=== PATIENT | female | born 1965 | race Two or more races ===

== ENCOUNTER 2018-05-27 13:15 | Emergency (ER) | payer OTHER ==
[2018-05-27 13:19] VITALS: TEMP 98.1; BMI 28.1
[2018-05-27] MEDS ORDERED: METOCLOPRAMIDE HCL INJECTION 10 MG/2 ML VIAL IM ONE (16:06)
[2018-05-27] MEDS ORDERED: dilTIAZem HCL 50 MG/10 ML - 10 ML VIAL IVPUSH ONE (16:22)
--- NOTE | 2018-05-27 16:30 | PDOC ---
History of Present Illness - General Chief Complaint: Blood Pressure Problem Stated Complaint: HEADACHE Time Seen by Provider: 05/27/18 14:27 History Source: Patient Exam Limitations: Clinical Condition - History of Present Illness Initial Comments: 05/27/18 16:24 Patient with history of hypertension, hyperlipidemia and iron deficiency anemia present with complain of elevated blood pressure with throbbing headache and nausea since yesterday. Denies vomiting, dizziness, chest pain, sweats or loss of consciousness. Patient reported she has been taking her blood pressure medication of amlodipine and hydrochlorothiazide daily. Denies any other symptoms Timing/Duration: 24 hours Past History - Past Medical History Allergies/Adverse Reactions: Allergies Allergy/AdvReac Type Severity Reaction Status Date / Time iron Allergy Verified 05/27/18 13:19 Home Medications: Ambulatory Orders Amlodipine Besylate [Norvasc -] 10 mg PO DAILY #15 tablet 05/27/18 Aspirin/Acetaminophen/Caffeine [Excedrin Migraine Caplet] 1 each PO BID PRN #20 tablet 05/27/18 Atorvastatin Ca [Lipitor] 10 mg PO HS 05/27/18 Ferrous Sulfate 325 mg PO DAILY 05/27/18 Losartan/Hydrochlorothiazide [Losartan-Hctz 100-25 mg Tab] 1 each PO DAILY 05/27 Anemia: Yes Cardiac Disorders: Yes COPD: No HTN: Yes Hypercholesterolemia: Yes - Suicide/Smoking/Psychosocial Hx Smoking History: Never smoked Review of Systems - Review of Systems Able to Perform ROS?: Yes Is the patient limited Singaporean proficient: No Constitutional: No: Chills, Fever, Weakness HEENTM: No: Symptoms Reported Respiratory: No: Symptoms reported Cardiac (ROS): No: Symptoms Reported, Chest Pain, Irregular Heart Rate, Palpitations, Syncope, Chest Tightness ABD/GI: Yes: Nausea. No: Abdominal Distended, Constipated, Diarrhea, Rectal Bleeding, Vomiting : No: Symptoms Reported, Dysuria, Frequency, Urgency Integumentary: No: Symptoms Reported Neurological: Yes: Headache. No: Seizure, Weakness, Unsteady Gait, Dizziness All Other Systems: Reviewed and Negative *Physical Exam - Vital Signs Last Vital Signs Temp Pulse Resp BP Pulse Ox 98.1 F 94 H 18 214/83 99 05/27/18 13:17 05/27/18 13:17 05/27/18 13:17 05/27/18 15:39 05/27/18 13:17 - Physical Exam Comments: 05/27/18 16:27 GENERAL: Well developed, well nourished. Awake and alert. No acute distress. HEENT: Normocephalic, atraumatic. PERRLA, EOMI. NECK: Supple. Full ROM. No JVD. Carotid pulses 2+ and symmetric, without bruits. No thyromegaly. No lymphadenopathy. CARDIOVASCULAR: Regular rate and rhythm. No murmurs, rubs, or gallops. Distal pulses are 2+ and symmetric. PULMONARY: No evidence of respiratory distress. Lungs clear to auscultation bilaterally. No wheezing, rales or rhonchi. ABDOMINAL: Soft. Non-tender. Non-distended. No rebound or guarding. No organomegaly. Normoactive bowel sounds. SKIN: Warm and dry. Normal capillary refill. No rashes. No jaundice. NEUROLOGICAL: Alert, awake, appropriate. Cranial nerves 2-12 intact. Gait is normal without ataxia. PSYCHIATRIC: Cooperative. Good eye contact. Appropriate mood and affect. General Appearance: Yes: Nourished, Appropriately Dressed. No: Apparent Distress ED Treatment Course - LABORATORY CBC & Chemistry Diagram: 05/27/18 17:08 05/27/18 17:08 - RADIOLOGY Radiology Studies Ordered: Category Date Time Status HEAD CT WITHOUT CONTRAST [CT] Stat CT Scan 05/27/18 16:22 Ordered Medical Decision Making - Medical Decision Making 05/27/18 16:28 Patient with history of hypertension, hyperlipidemia and iron deficiency anemia present with complain of throbbing headaches, nausea and elevated blood pressure since yesterday. Exam significant for elevated blood pressure otherwise unremarkable. Reglan 10 IV given for headache and nausea. The amlodipine 10 mg PO given for elevated blood pressure. CAT scan of head without contrast ordered to rule out acute pathology. Observe patient for few hours and reassess for blood pressure 05/27/18 18:53 blood pressure improved with amlodipine and CM improved as well with reglan. labs done with no acute pathology. head CT with no acute pathology. patient stable for home dischare on home BP meds and add amlodipine 10mg to better BP control with PCP follow-up *DC/Admit/Observation/Transfer Diagnosis at time of Disposition: Elevated blood pressure reading in office with diagnosis of hypertension Headache Qualifiers: Headache type: unspecified Headache chronicity pattern: acute headache Intractability: not intractable Qualified Code(s): R51 - Headache - Discharge Dispostion Disposition: HOME Condition at time of disposition: Stable Decision to Admit order: No - Prescriptions Prescriptions: Amlodipine Besylate [Norvasc -] 10 mg PO DAILY #15 tablet Aspirin/Acetaminophen/Caffeine [Excedrin Migraine Caplet] 1 each PO BID PRN #20 tablet PRN Reason: headache - Referrals Referrals: Hugo Nieto [Primary Care Provider] - - Patient Instructions Printed Discharge Instructions: DI for High Blood Pressure, DI for Headache, How to Monitor Your Blood Pressure at Home Additional Instructions: Take home blood pressure medication. take prescribe blood pressure medication with home blood pressure med for better blood pressure control. Follow-up with primary care as soon as possible for reassessment. To emergency room if persistent severe headaches, dizziness, lightheadedness, chest pain or shortness of breath - Post Discharge Activity
[2018-05-27] MEDS ORDERED: METOCLOPRAMIDE HCL INJECTION 10 MG/2 ML VIAL IVPUSH ONE (16:52)
[2018-05-27] MEDS ORDERED: amLODIPine BESYLATE 10 MG TABLET (FP) PO ONE (16:54)
[2018-05-27] MEDS ORDERED: METOCLOPRAMIDE HCL INJECTION 10 MG/2 ML VIAL ONE (16:54)
[2018-05-27] MEDS ORDERED: amLODIPine BESYLATE 5 MG TABLET (FP) ONE (17:04)
[2018-05-27 17:13] LABS: HEMATOCRIT 39.2 % (32.4-45.2); HEMOGLOBIN 12.4 GM/dL (10.7-15.3); MCH 22.5 pg (25.7-33.7); MCHC 31.7 g/dl (32.0-36.0); MEAN CELL VOLUME 70.9 fl (80-96); MEAN PLT VOLUME 7.1 fl (7.5-11.1); PLATELET COUNT 404 K/MM3 (134-434); RBC 5.52 M/mm3 (3.60-5.2); RDW 23.4 % (11.6-15.6)
[2018-05-27 17:33] LABS: ALBUMIN 4.5 g/dl (3.4-5.0); ALK PHOS 109 U/L (45-117); ANION GAP 9 MMOL/L (8-16); BILIRUBIN,TOTAL 0.4 mg/dL (0.2-1); BLOOD UREA NITROGEN 16 mg/dL (7-18); CALCIUM 10.1 mg/dL (8.5-10.1); CHLORIDE 102 mmol/L (98-107); CO2 28 mmol/L (21-32); CREATININE 0.7 mg/dL (0.55-1.3); GLUCOSE,RANDOM 82 mg/dL (74-106); POTASSIUM 3.9 mmol/L (3.5-5.1); SGOT/AST 12 U/L (15-37); SGPT/ALT 21 U/L (13-61); SODIUM 139 mmol/L (136-145)
--- NOTE | 2018-05-27 18:06 | PDOC ---
*Physical Exam - Vital Signs Last Vital Signs Temp Pulse Resp BP Pulse Ox 98.1 F 94 H 18 214/83 99 05/27/18 13:17 05/27/18 13:17 05/27/18 13:17 05/27/18 15:39 05/27/18 13:17 - Physical Exam Comments: 05/27/18 18:06 The patient was examined by [MARK Martinez] under my direct supervision. I personally evaluated the patient. I concur with the above findings and the plan of care. ED Treatment Course - LABORATORY CBC & Chemistry Diagram: 05/27/18 17:08 05/27/18 17:08 - ADDITIONAL ORDERS Additional order review: Laboratory Results 05/27/18 05/27/18 17:08 17:08 Sodium 139 Potassium 3.9 Chloride 102 Carbon Dioxide 28 Anion Gap 9 BUN 16 Creatinine 0.7 Creat Clearance w eGFR > 60 Random Glucose 82 Calcium 10.1 Total Bilirubin 0.4 AST 12 L ALT 21 Alkaline Phosphatase 109 Total Protein 9.0 H Albumin 4.5 Urine HCG, Qual Negative 05/27/18 17:08 RBC 5.52 H MCV 70.9 L MCHC 31.7 L RDW 23.4 H MPV 7.1 L - Medications Given in the ED: ED Medications Discontinued Medications Generic Name Dose Route Start Last Admin Trade Name Cindy PRN Reason Stop Dose Admin Amlodipine Besylate 10 mg 05/27/18 16:54 05/27/18 17:15 Norvasc - PO 05/27/18 16:55 10 mg ONCE ONE Administration Diltiazem HCl 10 mg 05/27/18 16:22 05/27/18 17:15 Cardizem Injection - IVPUSH 05/27/18 16:23 Not Given ONCE ONE Metoclopramide HCl 10 mg 05/27/18 16:06 05/27/18 17:15 Reglan Injection - IM 05/27/18 16:07 Not Given ONCE ONE Metoclopramide HCl 10 mg 05/27/18 16:52 05/27/18 17:15 Reglan Injection - IVPUSH 05/27/18 16:53 10 mg ONCE ONE Administration *DC/Admit/Observation/Transfer - Referrals Referrals: Hugo Nieto [Primary Care Provider] - - Patient Instructions - Post Discharge Activity
[2018-05-27 18:09] LABS: WHITE BLOOD COUNT 6.7 K/mm3 (4.0-10.0)
[2018-05-27 18:50] VITALS: BP 170/95; PULSE 68
== END 2018-05-27 19:20 | disposition home or self-care (01) ==
LOC: JER 13:15
PROC: 3E033GC Introduction of Other Therapeutic Substance into Peripheral Vein, Percutaneous Approach (ICD-10-PCS; principal; 2018-05-27)
DX: I10 Essential (primary) hypertension (principal); R51 Headache; E78.5 Hyperlipidemia, unspecified
CPT/HCPCS: 36415; 70450-TC; 80053; 84703; 85027; 99281-25

== ENCOUNTER 2019-09-27 15:05 | Emergency (ER) | payer OTHER ==
[2019-09-27 15:11] VITALS: TEMP 97.8; BMI 28.6
--- NOTE | 2019-09-27 15:11 | PDOC ---
Rapid Medical Evaluation Time Seen by Provider: 09/27/19 15:09 Medical Evaluation: Allergies Allergy/AdvReac Type Severity Reaction Status Date / Time iron Allergy Verified 05/27/18 13:19 09/27/19 15:10 I performed a brief in-person evaluation of this patient. 54-year-old female with HTN, "heartburn", anemia requiring transfusion presenting with BRPBR x 4 since last night. Denies pain, n/v, and other symptoms. Pertinent physical exam findings: Conjunctivae pale. Abd soft, non-tender, non-distended. Hypertensive. I have ordered the following: EKG CBC, CMP, PT/INR, T&S, IV access Patient to proceed to ED for further evaluation. Discharge Disposition - Diagnosis Rectal bleed - Referrals - Patient Instructions - Post Discharge Activity
[2019-09-27 15:42] LABS: BASO % 0.3 % (0-2.0); EOS % 2.3 % (0-4.5); HEMATOCRIT 35.3 % (32.4-45.2); HEMOGLOBIN 11.5 GM/dL (10.7-15.3); LYMPH % 21.4 % (8-40); MCH 25.1 pg (25.7-33.7); MCHC 32.6 g/dl (32.0-36.0); MEAN CELL VOLUME 76.9 fl (80-96); MONO % 11.8 % (3.8-10.2); NEUT % 64.2 % (42.8-82.8); PLATELET COUNT 289 K/MM3 (134-434); RBC 4.58 M/mm3 (3.60-5.2); RDW 17.3 % (11.6-15.6); WHITE BLOOD COUNT 5.6 K/mm3 (4.0-10.0)
[2019-09-27 16:06] LABS: INR 1.03 (0.83-1.09); PROTHROMBIN TIME (PATIENT) 12.1 SEC (9.7-13.0)
[2019-09-27 16:16] LABS: BILIRUBIN,TOTAL 0.4 mg/dL (0.2-1); BLOOD UREA NITROGEN 15.3 mg/dL (7-18); CALCIUM 9.4 mg/dL (8.5-10.1); CREATININE 0.7 mg/dL (0.55-1.3); TOT PROT 7.6 g/dl (6.4-8.2)
--- NOTE | 2019-09-27 16:25 | PDOC ---
History of Present Illness - General Chief Complaint: Rectal Bleed Stated Complaint: RECTAL BLEEDING Time Seen by Provider: 09/27/19 15:09 History Source: Patient Exam Limitations: No Limitations - History of Present Illness Initial Comments: 09/29/19 05:20 54 yo F with a hx of HTN presents to the emergency department with rectal bleeding that has been occurring since yesterday. Per the patient, these episodes are painless and have not occurred in the past before. Per the images she presented, the episodes are bright red blood. Denies the following associated symptoms: fever, chills, SOB, chest pain, abdominal pain, weakness, fatigue, bowel incontinence, ulcers of the mouth and anus, hx of UC, recent trauma, and leg pain/swelling, and rash. Concurrently, she is also presenting for elevated BP. Past History - Past Medical History Allergies/Adverse Reactions: Allergies Allergy/AdvReac Type Severity Reaction Status Date / Time iron Allergy Verified 09/27/19 15:11 Home Medications: Ambulatory Orders Amlodipine Besylate [Norvasc -] 10 mg PO DAILY #15 tablet 05/27/18 Aspirin/Acetaminophen/Caffeine [Excedrin Migraine Caplet] 1 each PO BID PRN #20 tablet 05/27/18 Atorvastatin Ca [Lipitor] 10 mg PO HS 05/27/18 Ferrous Sulfate 325 mg PO DAILY 05/27/18 Losartan/Hydrochlorothiazide [Losartan-Hctz 100-25 mg Tab] 1 each PO DAILY 05/27 Anemia: Yes Cardiac Disorders: Yes COPD: No HTN: Yes Hypercholesterolemia: Yes - Psycho Social/Smoking Cessation Hx Smoking History: Never smoked Review of Systems - Review of Systems Able to Perform ROS?: Yes Is the patient limited Kiswahili proficient: No Constitutional: No: Chills, Diaphoresis, Fever, Weakness HEENTM: No: Eye Pain, Blurred Vision, Recent change in vision, Ear Pain, Nose Pain, Throat Pain, Mouth Pain Respiratory: No: Cough, Shortness of Breath, Hemoptysis Cardiac (ROS): No: Chest Pain, Lightheadedness, Palpitations, Syncope, Chest Tightness ABD/GI: Yes: Rectal Bleeding. No: Constipated, Diarrhea, Nausea, Vomiting, Tarry Stools : No: Burning, Dysuria, Hematuria, Incontinence Musculoskeletal: No: Back Pain, Joint Pain, Neck Pain Integumentary: No: Bruising, Erythema, Rash Neurological: No: Headache, Numbness, Tingling, Tremors Psychiatric: No: Change in Appetite Endocrine: No: Unexplained Weight Gain Hematologic/Lymphatic: No: Anemia *Physical Exam - Vital Signs Last Vital Signs Temp Pulse Resp BP Pulse Ox 97.8 F 98 H 18 215/114 H 100 09/27/19 15:07 09/27/19 15:07 09/27/19 15:07 09/27/19 15:07 09/27/19 15:07 - Physical Exam General Appearance: Yes: Nourished, Appropriately Dressed. No: Apparent Distress, Intoxicated HEENT: positive: EOMI, AD, Normal Voice, Symmetrical, Pharynx Normal, Hearing Grossly Normal. negative: Pale Conjunctivae, Scleral Icterus (R), Scleral Icterus (L), Muffled/Hoarse voice, Pharyngeal Erythema, Tonsillar Exudate, Tonsillar Erythema, Nasal Congestion, Rhinorrhea, Sinus Tenderness, Excessive drooling Neck: positive: Trachea midline, Supple. negative: Tender, Lymphadenopathy (R) , Lymphadenopathy (L), Tender lateral, Tender midline Respiratory/Chest: positive: Lungs Clear, Normal Breath Sounds. negative: Chest Tender, Respiratory Distress, Accessory Muscle Use, Rhonchi, Stridor, Wheezing Cardiovascular: positive: Regular Rhythm, Regular Rate, S1, S2. negative: Systolic Murmur Gastrointestinal/Abdominal: positive: Normal Bowel Sounds, Flat, Soft. negative : Tender Rectal Exam: positive: other (external hemorrhoid non thrombosed noted at the 3' oclock position without tenderness to palpation. heme positive DOUG. No internal hemorrhoids palpated. ) Lymphatic: negative: Adenopathy Musculoskeletal: positive: Normal Inspection. negative: CVA Tenderness, Vertebral Tenderness Extremity: positive: Normal Capillary Refill, Normal Inspection, Normal Range of Motion. negative: Tender Integumentary: positive: Normal Color, Dry, Warm Neurologic: positive: Fully Oriented, Alert, Normal Mood/Affect Vital Signs - Vital Signs #1 Time: 17:19 Blood Pressure: 177/76 BP Location: Right Arm Blood Pressure Position: Supine ED Treatment Course - LABORATORY CBC & Chemistry Diagram: 09/27/19 15:21 09/27/19 15:21 - ADDITIONAL ORDERS Additional order review: Laboratory Results 09/27/19 09/27/19 15:21 15:21 PT with INR 12.10 INR 1.03 Sodium 141 Potassium 4.0 Chloride 108 H Carbon Dioxide 29 Anion Gap 4 L BUN 15.3 Creatinine 0.7 Est GFR (CKD-EPI)AfAm 113.84 Est GFR (CKD-EPI)NonAf 98.23 Random Glucose 82 Calcium 9.4 Total Bilirubin 0.4 AST 11 L ALT 20 Alkaline Phosphatase 102 Total Protein 7.6 Albumin 4.0 09/27/19 15:21 RBC 4.58 MCV 76.9 L MCHC 32.6 RDW 17.3 H MPV 7.0 L Neutrophils % 64.2 Lymphocytes % 21.4 Monocytes % 11.8 H Eosinophils % 2.3 Basophils % 0.3 Medical Decision Making - Medical Decision Making 54 yo F with a hx of HTN presents to the emergency department with rectal bleeding that has been occurring since yesterday. Per the patient, these episodes are painless and have not occurred in the past before. Initial vitals: Initial Vital Signs Temp Pulse Resp BP Pulse Ox 97.8 F 98 H 18 215/114 H 100 09/27/19 15:07 09/27/19 15:07 09/27/19 15:07 09/27/19 15:07 09/27/19 15:07 Work up: patient presents with painless bright red blood per rectum. on examination, she has a hemorrhoid that is non thrombosed. patient likely is having bleeding from the external hemorrhoid. patient also complaining of elevated BP. Laboratory Tests 09/27/19 09/27/19 09/27/19 15:21 15:21 15:21 WBC 5.6 RBC 4.58 Hgb 11.5 Hct 35.3 MCV 76.9 L MCH 25.1 L D MCHC 32.6 RDW 17.3 H Plt Count 289 D MPV 7.0 L Absolute Neuts (auto) 3.6 Neutrophils % 64.2 Lymphocytes % 21.4 Monocytes % 11.8 H Eosinophils % 2.3 Basophils % 0.3 Nucleated RBC % 0 PT with INR 12.10 INR 1.03 Sodium 141 Potassium 4.0 Chloride 108 H Carbon Dioxide 29 Anion Gap 4 L BUN 15.3 Creatinine 0.7 Est GFR (CKD-EPI)AfAm 113.84 Est GFR (CKD-EPI)NonAf 98.23 Random Glucose 82 Calcium 9.4 Total Bilirubin 0.4 AST 11 L ALT 20 Alkaline Phosphatase 102 Total Protein 7.6 Albumin 4.0 Blood Type Antibody Screen Antigen Identification 09/27/19 15:21 WBC RBC Hgb Hct MCV MCH MCHC RDW Plt Count MPV Absolute Neuts (auto) Neutrophils % Lymphocytes % Monocytes % Eosinophils % Basophils % Nucleated RBC % PT with INR INR Sodium Potassium Chloride Carbon Dioxide Anion Gap BUN Creatinine Est GFR (CKD-EPI)AfAm Est GFR (CKD-EPI)NonAf Random Glucose Calcium Total Bilirubin AST ALT Alkaline Phosphatase Total Protein Albumin Blood Type A POSITIVE Antibody Screen Negative Antigen Identification A1 ANTIGEN - POSITIVE lab work within normal limits; no anemia noted patient was given follow up with Dr. Trejo for follow up management of the hemorrhoid Patient was given education on solutions for the hemorrhoid including using sitz bath and preparation H. In addition, repeat BP was 177/76, patient denies symptomatic complaints save for the bright red blood. no pain noted by the patient. Advised the patient to follow up with their physician within 2 days after discharge for repeat BP check and adjustment of medications. she used to be taking a combination of losartan and HCTZ but was recalled, thus has been on amlodipine for BP management. Patient well at the time of discharge Discharge - Discharge Information Problems reviewed: Yes Clinical Impression/Diagnosis: Rectal bleed Condition: Improved Disposition: HOME - Follow up/Referral Referrals: Hugo Nieto [Primary Care Provider] - Cody Trejo MD [Staff Physician] - - Patient Discharge Instructions Patient Printed Discharge Instructions: DI for Hemorrhoids, DI for High Blood Pressure, DI for Rectal Bleeding Additional Instructions: You were seen in the emergency department for your high blood pressure and rectal bleeding. you have hemorrhoids on exam and your blood pressure resolved within an acceptable level. Please call your primary medical doctor tomorrow for management of your high blood pressure. Please return to the emergency department if you have worsening symptoms or new concerning symptoms such as fever, headaches, visual changes, and weakness. Thank you. You will be contacted by Dr. Trejo for surgical consultation. Please acquire preparation H and sitz bath from your local pharmacy. These can be bought over the counter and do not require a prescription. - Post Discharge Activity Work/Back to School Note: Back to Work
--- NOTE | 2019-09-27 16:43 | PDOC ---
Attending Attestation - Resident Resident Name: Lalo Johnson - ED Attending Attestation I have performed the following: I have examined & evaluated the patient, The case was reviewed & discussed with the resident, I agree w/resident's findings & plan, Exceptions are as noted - HPI HPI: 54 yo F history HTN presents with rectal bleeding since yesterday, associated with hard stools. Denies any rectal pain. No prior similar symptoms. Denies weakness, numbness, fatigue. - Physicial Exam PE: GENERAL: Awake, alert, and fully oriented, in no acute distress HEAD: No signs of trauma EYES: PERRLA, EOMI, sclera anicteric, conjunctiva clear ENT: Auricles normal inspection, hearing grossly normal, nares patent, oropharynx clear without exudates. Moist mucosa NECK: Normal ROM, supple, no lymphadenopathy, JVD, or masses LUNGS: Breath sounds equal, clear to auscultation bilaterally. No wheezes, and no crackles HEART: Regular rate and rhythm, normal S1 and S2, no murmurs, rubs or gallops ABDOMEN: Soft, nontender, normoactive bowel sounds. No guarding, no rebound. No masses EXTREMITIES: Normal range of motion, no edema. No clubbing or cyanosis. No cords, erythema, or tenderness NEUROLOGICAL: Cranial nerves II through XII grossly intact. Normal speech, normal gait. Motor and sensation intact SKIN: Warm, dry, normal turgor, no rashes or lesions noted. RECTAL: +1 non-thrombosed hemorrhoid present at the 3 o'clock position, no active bleeding - Medical Decision Making Pt with hemorrhoid, non-thrombosed. Will recommend preparation H, sitz baths, and tucks pads. F/u with surgery. In regards to her BP, she was previously on a combination agent that contained losartan, which was recalled. She has been taking amlodipine, but BP has been elevated since then. BP improved in ED without any intervention. Recommended f/u with her PMD, call tomorrow for appointment to adjust medication.
[2019-09-27 17:33] VITALS: PULSE 75
[2019-09-27 17:35] VITALS: BP 177/76
--- NOTE | 2019-09-28 11:30 | EKG ---
Test Reason : Blood Pressure : / mmHG Vent. Rate : 090 BPM Atrial Rate : 090 BPM P-R Int : 136 ms QRS Dur : 084 ms QT Int : 374 ms P-R-T Axes : 065 017 048 degrees QTc Int : 457 ms NORMAL SINUS RHYTHM NORMAL ECG WHEN COMPARED WITH ECG OF 14-OCT-2012 14:10, NO SIGNIFICANT CHANGE WAS FOUND Confirmed by Scott Good MD ([id number]) on 09/28/2019 11:29:46 AM Referred By: Confirmed By:Scott Good MD
== END 2019-09-27 18:00 | disposition home or self-care (01) ==
LOC: JER 15:05
DX: K64.4 Residual hemorrhoidal skin tags (principal); I10 Essential (primary) hypertension; D64.9 Anemia, unspecified; Z91.09 Other allergy status, other than to drugs and biological substances
CPT/HCPCS: 36415; 80053; 85025; 85610; 86850; 86900; 86901; 86902; 93005; 93010; 99283-25

== ENCOUNTER 2022-06-28 19:42 | Emergency (ER) | payer OTHER ==
[2022-06-28 19:46] VITALS: BP 184/95; RESP 18; TEMP 98.3; BMI 29.1
[2022-06-28] MEDS ORDERED: IBUPROFEN 600 MG TABLET (FP) PO ONE ×2 (20:58→21:09)
[2022-06-28] MEDS ORDERED: ACETAMINOPHEN 500 MG TABLET (FP) PO ONE (21:06)
[2022-06-28] MEDS ORDERED: ACETAMINOPHEN 500 MG TABLET (FP) ONE (21:09)
[2022-06-28 21:24] VITALS: PULSE 99
== END 2022-06-28 21:25 | disposition home or self-care (01) ==
LOC: JERFT 19:42
DX: S93.402A Sprain of unspecified ligament of left ankle, initial encounter (principal)
CPT/HCPCS: 73610-TC-LT-FY; 73630-TC-LT; 99283-25